=== PATIENT | male | born 1995 | race Caucasian/White ===

== ENCOUNTER 2018-09-11 15:37 | Emergency (ER) | payer BC ==
[~2018-09-11] VITALS: Ht 180.3 cm; Wt 71.2 kg
--- NOTE | 2018-09-11 15:37 | NUR ---
PT BIBSELF FOR GEN WEAKNESS, PERIOD OF CONFUSION, PT AAOX4, -SOB, NAD NOTED, VSS, PENDING MD DAY
[2018-09-11 16:20] LABS: EOSINOPHILS % (AUTO) 0.9 % (0.0-6.0); HEMATOCRIT 42 % (39-51); HEMOGLOBIN 14.8 g/dL (13.5-17.5); LYMPHOCYTES # (AUTO) 1.6 /CMM (0.8-4.8); LYMPHOCYTES % (AUTO) 33.6 % (20.0-44.0); MEAN CORPUSCULAR HGB CONC 35 g/dl (31.0-36.0); MEAN CORPUSCULAR VOLUME 88 fL (80-96); MONOCYTES # (AUTO) 0.3 /CMM (0.1-1.30); MONOCYTES % (AUTO) 7.4 % (2.0-12.0); NEUTROPHILS # (AUTO) 2.6 /CMM (1.8-8.9); NEUTROPHILS % (AUTO) 57.1 % (43.0-81.0); PLATELET COUNT (AUTO) 143 /CMM (150-450); RED BLOOD CELL COUNT(AUTO) 4.77 MIL/uL (4.5-6.0); WHITE BLOOD COUNT (AUTO) 4.6 K/uL (4.3-11.0)
[2018-09-11 16:27] LABS: CARBON DIOXIDE 29 mmol/L (21-32); CHLORIDE 103 mmol/L (98-107); GLUCOSE 124 mg/dL (74-106); POTASSIUM 3.9 mmol/L (3.5-5.1); SODIUM SERUM 139 mmol/L (136-145); UREA NITROGEN, BLOOD 22 mg/dL (7-18)
[2018-09-11 16:33] LABS: ALANINE AMINOTRANSFERASE 45 U/L (12-78); ALBUMIN 4.3 g/dL (3.4-5.0); ALKALINE PHOSPHATASE 86 U/L (46-116); ASPARTATE AMINOTRANSFERASE 31 U/L (15-37); BILIRUBIN,DIRECT 0.1 mg/dL (0.0-0.2); BILIRUBIN,TOTAL 0.4 mg/dL (0.2-1.0); TOTAL PROTEIN, SERUM 6.8 g/dL (6.4-8.2)
[2018-09-11] MEDS ORDERED: CETI-102 PO (16:53)
[2018-09-11 17:07] VITALS: BP 109/59
--- NOTE | 2018-09-11 17:47 | NUR ---
Patient discharged to home in stable condition. Written and verbal after care instructions given. Patient verbalizes understanding of instruction. IV removed. Catheter intact and site benign. Pressure and 4x4 applied to site. No bleeding noted.
== END 2018-09-11 18:53 | disposition home or self-care (01) ==
LOC: ER 15:43
DX: R53.1 Weakness (principal)
CPT/HCPCS: 36415; 70450-TC; 71045-TC; 80048-TC; 80076-TC; 82533; 82962-TC; 84402; 84403; 84443-TC; 84484-TC; 85025-TC

== ENCOUNTER 2019-05-05 23:10 | Emergency (ER) | payer BC ==
[~2019-05-05] VITALS: Ht 180.3 cm; Wt 72.6 kg
[~2019-05-05 23:10] MED LIST: CETI-110 PO
[2019-05-05 23:51] VITALS: BP 118/67
--- NOTE | 2019-05-05 23:51 | NUR ---
PT AAOX4. C/O L FOOT PAIN S/P MISSING A STEP. DENIES KO. PT REFUSE ORAL TEMP. NO ACUTE DISTRESS NOTED. PT ABLE TO MOVE FOOT SLOWLY. AWAITING MD FOR EVAL.
--- NOTE | 2019-05-06 00:47 | NUR ---
Patient discharged to home in stable condition. Written and verbal after care instructions given. Patient verbalizes understanding of instruction and RX. PT placed in boot and given crutches. crutch walk taught, pt ambulated using crutches. vss
== END 2019-05-06 00:51 | disposition home or self-care (01) ==
LOC: ER 23:17
DX: S93.492A Sprain of other ligament of left ankle, initial encounter (principal); J45.909 Unspecified asthma, uncomplicated; Z79.899 Other long term (current) drug therapy; X58.XXXA Exposure to other specified factors, initial encounter; Y93.89 Activity, other specified; Y92.89 Other specified places as the place of occurrence of the external cause; Y99.8 Other external cause status
CPT/HCPCS: 73610-TC; 73630-TC